=== PATIENT | female | born 1945 | race Two or more races ===

== ENCOUNTER 2020-08-09 07:30 | Day surgery (SDC) | payer OTHER ==
[~2020-08-09 07:30] MED LIST: CELEBREX50 MG PO; SYNTHROID75 MCG PO; ZOLOFT25 MG PO
[2020-08-09] MEDS ORDERED: ULTRACET PO (14:00)
[2020-08-09] MEDS ORDERED: KEFLEX750 MG PO (14:00)
== END 2020-08-09 15:00 | disposition home or self-care (01) ==
LOC: CIR.AMB 07:30
PROVIDERS: ATTEND Obstetrics & Gynecology Gynecology
DX: N39.41 Urge incontinence (principal); N32.81 Overactive bladder; Z20.828 Contact with and (suspected) exposure to other viral communicable diseases
CPT/HCPCS: 64581; C1778

== ENCOUNTER 2020-08-16 06:53 | Day surgery (SDC) | payer OTHER ==
[~2020-08-16 06:53] MED LIST changes: +KEFLEX750 MG PO; +ULTRACET PO
== END 2020-08-16 15:25 | disposition home or self-care (01) ==
LOC: CIR.AMB 06:53
PROVIDERS: ATTEND Obstetrics & Gynecology Gynecology
DX: N39.41 Urge incontinence (principal); N32.81 Overactive bladder; Z20.822 Contact with and (suspected) exposure to COVID-19
CPT/HCPCS: 64590; 95971; L8679